=== PATIENT | male | born 1955 | race African-American/Black ===

== ENCOUNTER 2017-06-07 19:53 | Emergency (ER) | payer MEDICARE ==
[~2017-06-07] VITALS: Ht 172.7 cm; Wt 133.8 kg
[2017-06-07] MEDS ORDERED: Ketorolac 30mg Inj IV ONE (20:45)
[2017-06-07] MEDS ORDERED: Morphine Sulfate 4mg/ml Inj IVP ONE (20:45)
[2017-06-07 21:25] LABS: BASOPHILS % (AUTO) 0.7 % (0.0-2.0); EOSINOPHILS % (AUTO) 0.4 % (0.0-3.0); MEAN CORPUSCULAR HEMOGLOBIN 25.9 PG (27.0-31.0); MEAN CORPUSCULAR HGB CONC 32.2 G/DL (32.0-36.0); MEAN CORPUSCULAR VOLUME 81 FL (80-99); MONOCYTES % (AUTO) 8.3 % (1.0-10.0); NEUTROPHILS % (AUTO) 76.6 % (45.0-75.0); PLATELET COUNT 255 K/UL (150-450); RED BLOOD COUNT 5.29 M/UL (4.70-6.10); RED CELL DISTRIBUTION WIDTH 13.8 % (11.6-14.8); WHITE BLOOD COUNT 12.7 K/UL (4.8-10.8)
[2017-06-07 21:47] LABS: APPEARANCE,URINE CLEAR; KETONES,URINE NEGATIVE (NEGATIVE); LEUKOCYTE ESTERASE ,URINE NEGATIVE (NEGATIVE); NITRITE,URINE NEGATIVE (NEGATIVE); PH,URINE 5 (4.5-8.0); PROTEIN,URINE NEGATIVE (NEGATIVE); UROBILINOGEN,URINE NORMAL MG/DL (0.0-1.0)
[2017-06-07] MEDS ORDERED: TAMSULOSIN HCL0.4 MG ORAL (21:48)
[2017-06-07] MEDS ORDERED: NORCO 5-325 TA1 EACH ORAL (21:48)
[2017-06-07] MEDS ORDERED: IBUPROFEN600 MG ORAL (21:48)
[2017-06-07 21:51] LABS: ALBUMIN/GLOBULIN RATIO 1.2 (1.0-2.7); CREATININE 1.6 mg/dL (0.7-1.2); GLOMERULAR FILTRATION RATE 53.2 mL/min (>60); POTASSIUM 3.8 mEQ/L (3.4-4.9); TOTAL PROTEIN 8.6 g/dL (6.6-8.7)
[2017-06-07 21:54] LABS: PROTHROMBIN TIME 10.6 SEC (9.30-11.50)
[2017-06-07 21:55] LABS: BACTERIA,URINE FEW /HPF; WBC,URINE 0-2 /HPF (0 - 0)
[2017-06-07] MEDS ORDERED: BACTRIM DS TAB1 EAC1 ORAL (21:55)
[2017-06-07 22:17] VITALS: BP 133/77
[2017-06-07 22:19] VITALS: BP 133/77
--- NOTE | 2017-06-07 23:35 | Emergency Room Report ---
History of Present Illness General Chief Complaint: Abdominal Pain Source: Patient Present Illness HPI Patient 61-year-old male who presented after increased left-sided flank pain. Patient had onset of symptoms since this morning. Patient not been vomiting. He denied any fever. Patient prior history of renal stones. The patient denied any hematuria. He stated this felt similar to his previous kidney stones. Pain was severe nature. He did not have any vomiting he reported having normal bowel movements. Allergies: Coded Allergies: PENICILLINS (Verified Allergy, Intermediate, 06/07/17) Patient History Past Medical History: see triage record Reviewed Nursing Documentation: PMH: Agreed, PSxH: Agreed Nursing Documentation-PMH Hx Hypertension: Yes Hx Diabetes: Yes Review of Systems All Other Systems: negative except mentioned in HPI Physical Exam Vital Signs Date Time Temp Pulse Resp B/P Pulse Ox O2 Delivery O2 Flow Rate FiO2 06/07/17 20:16 98.2 86 16 153/80 98 Room Air Sp02 EP Interpretation: reviewed, normal General Appearance: normal inspection, well appearing, no apparent distress, alert, GCS 15 Head: atraumatic ENT: normal ENT inspection, hearing grossly normal, normal voice Neck: normal inspection, full range of motion, supple, no bony tend Respiratory: normal inspection, lungs clear, normal breath sounds, no respiratory distress, no retraction, no wheezing Cardiovascular #1: regular rate, rhythm, no edema Gastrointestinal: normal inspection, normal bowel sounds, non tender, soft, no guarding, no hernia Genitourinary: CVA tenderness (L) Musculoskeletal: normal inspection, back normal, normal range of motion Neurologic: normal inspection, alert, oriented x3, responsive, associate java developer III-XII nml as tested, speech normal Psychiatric: normal inspection, judgement/insight normal, mood/affect normal Skin: normal inspection, normal color, no rash Medical Decision Making Diagnostic Impression: Primary Impression: Stone, kidney Additional Impressions: Renal insufficiency Ureteral stone ER Course Patient presented for flank pain. Differential diagnosis included was not limited to pneumonia, renal stone, rib fracture, pulmonary embolism, ulcer, enteritis, pyelonephritis among others. Because of complexity of patient's case laboratory testing and imaging studies were ordered.The patient given IV pain medications. He was noted to have the mild elevated white blood count. The patient was also noted to have a mildly elevated creatinine. The patient prior history of diabetes. A CT imaging of the abdomen pelvis read by radiology showed 5 mm ureteral stone as well as a smaller intrarenal stone on the left side. Patient is advised of CT findings. He was given prescription for oral antibiotics as well as pain medication and Flomax. Patient is advised to return if he began having persistent vomiting high fever or other concerns Labs Test 06/07/17 21:15 White Blood Count 12.7 K/UL (4.8-10.8) Red Blood Count 5.29 M/UL (4.70-6.10) Hemoglobin 13.7 G/DL (14.2-18.0) Hematocrit 42.6 % (42.0-52.0) Mean Corpuscular Volume 81 FL (80-99) Mean Corpuscular Hemoglobin 25.9 PG (27.0-31.0) Mean Corpuscular Hemoglobin Concent 32.2 G/DL (32.0-36.0) Red Cell Distribution Width 13.8 % (11.6-14.8) Platelet Count 255 K/UL (150-450) Mean Platelet Volume 8.0 FL (6.5-10.1) Neutrophils (%) (Auto) 76.6 % (45.0-75.0) Lymphocytes (%) (Auto) 14.0 % (20.0-45.0) Monocytes (%) (Auto) 8.3 % (1.0-10.0) Eosinophils (%) (Auto) 0.4 % (0.0-3.0) Basophils (%) (Auto) 0.7 % (0.0-2.0) Prothrombin Time 10.6 SEC (9.30-11.50) Prothromb Time International Ratio 1.0 (0.9-1.1) Activated Partial Thromboplast Time 25 SEC (23-33) Urine Color Pale yellow Urine Appearance Clear Urine pH 5 (4.5-8.0) Urine Specific [place] 1.015 (1.005-1.035) Urine Protein Negative (NEGATIVE) Urine Glucose (UA) Negative (NEGATIVE) Urine Ketones Negative (NEGATIVE) Urine Occult Blood 4+ (NEGATIVE) Urine Nitrite Negative (NEGATIVE) Urine Bilirubin Negative (NEGATIVE) Urine Urobilinogen Normal MG/DL (0.0-1.0) Urine Leukocyte Esterase Negative (NEGATIVE) Urine RBC 2-4 /HPF (0 - 0) Urine WBC 0-2 /HPF (0 - 0) Urine Squamous Epithelial Cells None /LPF (NONE/OCC) Urine Bacteria Few /HPF (NONE) Sodium Level 136 mEQ/L (135-145) Potassium Level 3.8 mEQ/L (3.4-4.9) Chloride Level 97 mEQ/L (98-107) Carbon Dioxide Level 23 mEQ/L (20-30) Anion Gap 16 (5-15) Blood Urea Nitrogen 24 mg/dL (7-23) Creatinine 1.6 mg/dL (0.7-1.2) Estimat Glomerular Filtration Rate 53.2 mL/min (>60) Glucose Level 175 mg/dL (74-106) Calcium Level 10.0 mg/dL (8.6-10.2) Total Bilirubin 0.2 mg/dL (0.0-1.2) Aspartate Amino Transf (AST/SGOT) 15 U/L (5-40) Alanine Aminotransferase (ALT/SGPT) 13 U/L (3-41) Alkaline Phosphatase 61 U/L (40-129) Total Protein 8.6 g/dL (6.6-8.7) Albumin 4.7 g/dL (3.5-5.2) Globulin 3.9 g/dL Albumin/Globulin Ratio 1.2 (1.0-2.7) Lipase 19 U/L (< 60) Last Vital Signs Date Time Temp Pulse Resp B/P Pulse Ox O2 Delivery O2 Flow Rate FiO2 06/07/17 22:19 98.2 89 16 133/77 98 Room Air Status: improved Disposition: HOME, SELF-CARE Condition: Stable Scripts Trimethoprim/Sulfamethoxazole 160/800* (BACTRIM DS TABLET*) 1 Each Tablet 1 TAB ORAL Q12H, #14 TAB 0 Refills Prov: Wyatt Du 06/07/17 Ibuprofen* (MOTRIN*) 600 Mg Tablet 600 MG ORAL Q8H Y for For Pain, #30 TAB 0 Refills Prov: Wyatt Du 06/07/17 Hydrocodone Bit/Acetaminophen 5-325* (NORCO 5-325*) 1 Each Tablet 1 TAB ORAL Q6H Y for For Pain, #20 TAB 0 Refills Prov: Wyatt Du 06/07/17 Tamsulosin Hcl (TAMSULOSIN HCL*) 0.4 Mg Cap.er.24h 0.4 MG ORAL BEDTIME, #10 CAP Prov: Wyatt Du 06/07/17 Patient Instructions: Kidney Stones Wyatt Du Jun 07, 2017 23:35
--- NOTE | 2017-06-08 10:04 | Diagnostic Imaging Report ---
Indication: PAIN Technique: Spiral acquisitions obtained through the abdomen and pelvis. No oral or IV contrast utilized, per urinary stone protocol. Multiplanar reconstructions were generated. Total dose length product follow 6 mGycm. CTDIvol(s) 19 mGy. Dose reduction achieved using automated exposure control Comparison: None Findings: There is a 4 mm calculus within the proximal left ureter, just beyond the ureteropelvic junction. There is mild resultant left hydronephrosis. There is left perinephric fat stranding. There is also a 3 mm calculus in the lower pole of the of renal collecting system. No right renal or ureteral calculi demonstrated. No right hydronephrosis or hydroureter. Lack of IV contrast limits assessment of the renal parenchyma. No gross renal parenchymal mass or cyst. The prostate is enlarged, indents the bladder floor slightly. It contains calcifications. The bladder itself is unremarkable. Lack of IV contrast limits assessment of the other solid organs. The liver demonstrates mild generalized hypoattenuation, consistent fatty change. The gallbladder is surgically absent. The bile ducts are unremarkable. The pancreas, spleen, right adrenal are unremarkable. The left adrenal demonstrates diffuse mild generalized enlargement without discrete focal mass. No pelvic mass or adenopathy. No retroperitoneal or mesenteric mass or adenopathy. The appendix is normal. There is colonic diverticulosis. No evidence of diverticulitis. No small bowel distention. No free or loculated intraperitoneal air or fluid. The included lung bases are clear. The bones demonstrate degenerative spondylosis changes. Impression: Positive for 4 mm proximal left ureteral calculus, results in hydronephrosis and perinephric fat stranding Prostatomegaly Mild fatty liver Evidence of prior cholecystectomy Nonspecific generalized enlargement of the left adrenal, may reflect mild hypertrophy. Colonic diverticulosis. No evidence of diverticulitis Incidental findings as noted, including degenerative spondylosis This agrees with the preliminary interpretation provided overnight by Dr. Naranjo The CT scanner at [facility] is accredited by the [employer] and the scans are performed using protocols designed to limit radiation exposure to as low as reasonably achievable to attain images of sufficient resolution adequate for diagnostic evaluation.
== END 2017-06-07 21:49 | disposition home or self-care (01) ==
LOC: EMR 20:26
DX: R10.9 Unspecified abdominal pain (principal); Z88.0 Allergy status to penicillin; N28.9 Disorder of kidney and ureter, unspecified; N13.2 Hydronephrosis with renal and ureteral calculous obstruction; K76.0 Fatty (change of) liver, not elsewhere classified; Z90.49 Acquired absence of other specified parts of digestive tract; K57.30 Diverticulosis of large intestine without perforation or abscess without bleeding
CPT/HCPCS: 36415; 74176; 80053; 81003; 83690; 85025; 85610; 85730; 96374; 96375; 99284; J1885; J2270

== ENCOUNTER 2017-07-11 08:52 | Emergency (ER) | payer MEDICARE ==
[~2017-07-11] VITALS: Ht 180.3 cm; Wt 99.8 kg
[~2017-07-11 08:52] MED LIST: BACTRIM DS TAB1 EAC1 ORAL; IBUPROFEN600 MG ORAL; NORCO 5-325 TA1 EACH ORAL; TAMSULOSIN HCL0.4 MG ORAL
[2017-07-11 08:56] VITALS: BP 168/92
[2017-07-11] MEDS ORDERED: METFORMIN HCL500 M1 ORAL (08:59)
[2017-07-11] MEDS ORDERED: Ketorolac 30mg Inj IM ONE (09:15)
[2017-07-11] MEDS ORDERED: NORCO 5-325 TA1 EACH ORAL (09:43)
[2017-07-11] MEDS ORDERED: CYCLOBENZAPRINE10 MG ORAL (09:43)
[2017-07-11 09:48] VITALS: BP 168/92
--- NOTE | 2017-07-11 10:47 | Emergency Room Report ---
History of Present Illness General Chief Complaint: Lower Back Pain or Injury Source: Patient, Medical Record Present Illness HPI 61-year-old male presents ED complaining of back pain. States pain started this morning after bending over to hand picker something. Patient notes pain in his lower back, throbbing, 8 out of 10, radiating down both legs. Denies any weakness in his legs. Denies any bowel or bladder incontinence. No other aggravating relieving factors. Denies any other associated symptoms Allergies: Coded Allergies: PENICILLINS (Verified Allergy, Intermediate, 06/07/17) Patient History Past Medical History: DM, HTN Past Surgical History: none Pertinent Family History: none Social History: Denies: smoking, alcohol use, drug use Immunizations: UTD Reviewed Nursing Documentation: PMH: Agreed, PSxH: Agreed Nursing Documentation-PMH Past Medical History: No History, Except For Hx Hypertension: Yes Hx Diabetes: Yes Review of Systems All Other Systems: negative except mentioned in HPI Physical Exam Vital Signs Date Time Temp Pulse Resp B/P (MAP) Pulse Ox O2 Delivery O2 Flow Rate FiO2 07/11/17 08:56 97.9 85 19 168/92 98 Room Air Sp02 EP Interpretation: reviewed, normal General Appearance: no apparent distress, alert, GCS 15, non-toxic, obese Head: normocephalic Eyes: bilateral eye normal inspection, bilateral eye PERRL ENT: normal ENT inspection Neck: normal inspection Respiratory: chest non-tender, lungs clear, normal breath sounds, speaking full sentences Cardiovascular #1: regular rate, rhythm, no edema Gastrointestinal: normal bowel sounds, non tender, soft, non-distended, no guarding, no rebound Rectal: deferred Genitourinary: no CVA tenderness, no vertebral tenderness Musculoskeletal: tender - paraspinal lumbar tenderness Neurologic: alert, oriented x3, responsive, motor strength/tone normal, sensory intact, speech normal Psychiatric: normal inspection Skin: normal inspection Lymphatic: normal inspection Medical Decision Making Diagnostic Impression: Primary Impression: Low back pain Qualified Codes: M54.5 - Low back pain ER Course Hospital Course 61-year-old male presents ED complaining of lower back pain. No evidence of trauma Differential diagnoses include: pyelonephritis, kidney stone, muscle strain, Lspine fracture Clinical course Patient placed on stretcher. After initial history and physical I ordered toradol and zantac for pain. Upon reassessment patient states pain has improved. Upon review of EMR, patient does not have any visits to ED requesting pain medications. patient does not have a PMD. Patient will be given referrals for PMD as well Diagnosis - back pain Stable and discharged to home with prescription for [place], Flexeril. Followup with PMD. Return to ED if symptoms recur or worsen Last Vital Signs Date Time Temp Pulse Resp B/P (MAP) Pulse Ox O2 Delivery O2 Flow Rate FiO2 07/11/17 09:48 97.9 76 19 168/92 98 Room Air Status: improved Disposition: HOME, SELF-CARE Condition: Stable Scripts Cyclobenzaprine Hcl* (FLEXERIL*) 10 Mg Tablet 10 MG ORAL TID Y for Muscle Spasm, #20 TAB Prov: SAMMIE KWAN M.D. 07/11/17 Hydrocodone Bit/Acetaminophen 5-325* (NORCO 5-325*) 1 Each Tablet 1 TAB ORAL Q6H Y for For Pain, #10 TAB 0 Refills Prov: SAMMIE KWAN M.D. 07/11/17 Referrals: DANICA COTA M.D., Payam MD SHAKIBAI, SHAMIM Patient Instructions: Lumbosacral Strain SAMMIE KWAN M.D. Jul 11, 2017 10:47
== END 2017-07-11 09:48 | disposition home or self-care (01) ==
LOC: EMR 09:12
DX: M54.5 Low back pain (principal); Z88.0 Allergy status to penicillin; I10 Essential (primary) hypertension; E11.9 Type 2 diabetes mellitus without complications
CPT/HCPCS: 96372; 99284; J1885

== ENCOUNTER 2018-03-25 14:53 | Emergency (ER) | payer MEDICARE ==
[~2018-03-25] VITALS: Ht 180.3 cm; Wt 108.9 kg
[~2018-03-25 14:53] MED LIST changes: +CYCLOBENZAPRINE10 MG ORAL; +METFORMIN HCL500 M1 ORAL
[2018-03-25 15:07] VITALS: BP 144/80
[2018-03-25 15:53] LABS: EOSINOPHILS % (AUTO) 1.8 % (0.0-3.0); HEMATOCRIT 39.7 % (42.0-52.0); HEMOGLOBIN 12.4 G/DL (14.2-18.0); LYMPHOCYTES % (AUTO) 26.8 % (20.0-45.0); MEAN CORPUSCULAR VOLUME 79 FL (80-99); MONOCYTES % (AUTO) 8.3 % (1.0-10.0); NEUTROPHILS % (AUTO) 62.1 % (45.0-75.0); PLATELET COUNT 273 K/UL (150-450); RED BLOOD COUNT 5.05 M/UL (4.70-6.10); RED CELL DISTRIBUTION WIDTH 13.4 % (11.6-14.8); WHITE BLOOD COUNT 7.7 K/UL (4.8-10.8)
[2018-03-25 16:01] LABS: ANION GAP 9 mmol/L (5-15); BLOOD UREA NITROGEN 15 mg/dL (7-18); CARBON DIOXIDE 25 MMOL/L (21-32); CHLORIDE 102 MMOL/L (98-107); CREATININE 1.3 MG/DL (0.55-1.30); POTASSIUM 3.9 MMOL/L (3.5-5.1); SODIUM 136 MMOL/L (136-145)
[2018-03-25 16:06] LABS: ALANINE AMINOTRANSFERASE 24 U/L (12-78); ALBUMIN 3.8 G/DL (3.4-5.0); ALBUMIN/GLOBULIN RATIO 0.8 (1.0-2.7); ALKALINE PHOSPHATASE 56 U/L (46-116); ASPARTATE AMINO TRANSFERASE 8 U/L (15-37); BILIRUBIN,TOTAL 0.2 MG/DL (0.2-1.0)
[2018-03-25 16:09] LABS: APPEARANCE,URINE CLEAR; BILIRUBIN, URINE NEGATIVE (NEGATIVE); COLOR,URINE PALE YELLOW; GLUCOSE, URINE (UA) NEGATIVE (NEGATIVE); KETONES,URINE NEGATIVE (NEGATIVE); LEUKOCYTE ESTERASE ,URINE NEGATIVE (NEGATIVE); NITRITE,URINE NEGATIVE (NEGATIVE); PH,URINE 5 (4.5-8.0); PROTEIN,URINE 2+ (NEGATIVE); UROBILINOGEN,URINE NORMAL MG/DL (0.0-1.0)
--- NOTE | 2018-03-25 16:09 | Diagnostic Imaging Report ---
Indication: Pain Technique: Continuous helical CT scanning of the head was performed utilizing automated exposure control without intravenous contrast material. Axial and coronal reconstructions were obtained. Comparison: None CT dose: Total DLP 1449.06 mGycm; CTDI vol 70.38 mGy Findings: There is no acute intracranial hemorrhage, mass effect or cortical edema. The ventricles, cisterns and sulci are within normal limits for age. There is a punctate subcentimeter calcification in the right aspect of dell. There are some very mild basal ganglia calcifications. There is mild opacification of some inferior right-sided mastoid air cells. Left-sided mastoid air cells are clear. Paranasal sinuses are clear. Imaged orbits grossly unremarkable. IMPRESSION: No evidence of acute intracranial hemorrhage, mass effect or cortical edema. MRI may be obtained for more sensitive evaluation as clinically indicated. Trace right mastoid effusion/mastoiditis. The CT scanner at [facility] is accredited by the [employer] and the scans are performed using protocols designed to limit radiation exposure to as low as reasonably achievable to attain images of sufficient resolution adequate for diagnostic evaluation.
[2018-03-25] MEDS ORDERED: Ketorolac 30mg Inj IV ONE (17:00)
[2018-03-25] MEDS ORDERED: carBAMazepine 200mg tab ORAL ONE (17:00)
[2018-03-25] MEDS ORDERED: ACYCLOVIR800 MG ORAL (17:04)
[2018-03-25] MEDS ORDERED: CLEOCIN150 MG ORAL (17:04)
[2018-03-25] MEDS ORDERED: TEGRETOL200 MG PO (17:04)
[2018-03-25 17:13] VITALS: BP 138/79
--- NOTE | 2018-03-29 14:33 | Emergency Room Report ---
History of Present Illness General Chief Complaint: Pain Source: Patient Present Illness HPI Patient is a 62-year-old male who presents after increased left-sided facial pain. The patient was having onset of symptoms approximate 2 hours prior to arrival. He denies any weakness to his extremities. He denies any change in his balance. Patient reports having burning sensation to the left side of his face to the back of his head. The patient has prior history of diabetes.Patient denies any visual changes.He denies any neck stiffness. Allergies: Coded Allergies: PENICILLINS (Verified Allergy, Intermediate, 06/07/17) Patient History Past Medical History: see triage record Reviewed Nursing Documentation: PMH: Agreed; PSxH: Agreed Nursing Documentation-PMH Past Medical History: No History, Except For Hx Hypertension: Yes Hx Diabetes: Yes Review of Systems All Other Systems: negative except mentioned in HPI Physical Exam Vital Signs Date Time Temp Pulse Resp B/P (MAP) Pulse Ox O2 Delivery O2 Flow Rate FiO2 03/25/18 14:57 97.7 99 20 149/80 97 Room Air 97.7 Sp02 EP Interpretation: reviewed, normal General Appearance: normal inspection, well appearing, no apparent distress, alert, GCS 15, obese Head: atraumatic ENT: normal ENT inspection, hearing grossly normal, normal voice Neck: normal inspection, full range of motion, supple, no bony tend Respiratory: normal inspection, lungs clear, normal breath sounds, no respiratory distress, no retraction, no wheezing Cardiovascular #1: regular rate, rhythm, no edema Gastrointestinal: normal inspection, normal bowel sounds, non tender, soft, no guarding, no hernia Genitourinary: no CVA tenderness Musculoskeletal: normal inspection, back normal, normal range of motion Neurologic: normal inspection, alert, oriented x3, responsive, bus 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 The differential diagnosis included was not limited to CVA, shingles, trigeminal neuralgia, sinusitis, intracranial hemorrhage among others.Because of complexity of patient's case laboratory testing and imaging studies were ordered. CT of the head read by radiology showed evidence of pontine calcification. Carotid ultrasound showed no evidence of significant carotid disease. The patient is advised to follow up with primary care doctor in 1-2 days for neurology. Patient is advised to return if any worsening condition or if any changes in status that are concerning. This report is dictated with [email or web address] wrapping machine tender software which may occasionally lead to discrepancies related to use of this software. Labs Test 03/25/18 15:30 03/25/18 15:45 White Blood Count 7.7 K/UL (4.8-10.8) Red Blood Count 5.05 M/UL (4.70-6.10) Hemoglobin 12.4 G/DL (14.2-18.0) Hematocrit 39.7 % (42.0-52.0) Mean Corpuscular Volume 79 FL (80-99) Mean Corpuscular Hemoglobin 24.5 PG (27.0-31.0) Mean Corpuscular Hemoglobin Concent 31.1 G/DL (32.0-36.0) Red Cell Distribution Width 13.4 % (11.6-14.8) Platelet Count 273 K/UL (150-450) Mean Platelet Volume 7.5 FL (6.5-10.1) Neutrophils (%) (Auto) 62.1 % (45.0-75.0) Lymphocytes (%) (Auto) 26.8 % (20.0-45.0) Monocytes (%) (Auto) 8.3 % (1.0-10.0) Eosinophils (%) (Auto) 1.8 % (0.0-3.0) Basophils (%) (Auto) 1.0 % (0.0-2.0) Sodium Level 136 MMOL/L (136-145) Potassium Level 3.9 MMOL/L (3.5-5.1) Chloride Level 102 MMOL/L (98-107) Carbon Dioxide Level 25 MMOL/L (21-32) Anion Gap 9 mmol/L (5-15) Blood Urea Nitrogen 15 mg/dL (7-18) Creatinine 1.3 MG/DL (0.55-1.30) Estimat Glomerular Filtration Rate > 60 mL/min (>60) Glucose Level 180 MG/DL (74-106) Calcium Level 9.0 MG/DL (8.5-10.1) Total Bilirubin 0.2 MG/DL (0.2-1.0) Aspartate Amino Transf (AST/SGOT) 8 U/L (15-37) Alanine Aminotransferase (ALT/SGPT) 24 U/L (12-78) Alkaline Phosphatase 56 U/L (46-116) Total Protein 8.6 G/DL (6.4-8.2) Albumin 3.8 G/DL (3.4-5.0) Globulin 4.8 g/dL Albumin/Globulin Ratio 0.8 (1.0-2.7) Urine Color Pale yellow Urine Appearance Clear Urine pH 5 (4.5-8.0) Urine Specific [place] 1.020 (1.005-1.035) Urine Protein 2+ (NEGATIVE) Urine Glucose (UA) Negative (NEGATIVE) Urine Ketones Negative (NEGATIVE) Urine Occult Blood 1+ (NEGATIVE) Urine Nitrite Negative (NEGATIVE) Urine Bilirubin Negative (NEGATIVE) Urine Urobilinogen Normal MG/DL (0.0-1.0) Urine Leukocyte Esterase Negative (NEGATIVE) Urine RBC 0-2 /HPF (0 - 0) Urine WBC 0-2 /HPF (0 - 0) Urine Squamous Epithelial Cells None /LPF (NONE/OCC) Urine Bacteria Few /HPF (NONE) Last Vital Signs Date Time Temp Pulse Resp B/P (MAP) Pulse Ox O2 Delivery O2 Flow Rate FiO2 03/25/18 17:13 97.7 85 18 138/79 100 Room Air 207.9 Status: improved Disposition: HOME, SELF-CARE Condition: Stable Scripts Clindamycin HCl (Clindamycin HCl) 300 Mg Capsule 150 MG ORAL Q6H, #28 CAP Prov: Wyatt Du MD 03/25/18 Acyclovir* (ZOVIRAX*) 800 Mg Tablet 800 MG ORAL FIVE TIMES A DAY, #35 TAB Prov: Wyatt Du MD 03/25/18 Carbamazepine (TEGRETOL*) 200 Mg Tablet 200 MG PO TID, #30 TAB Prov: Wyatt Du MD 03/25/18 Patient Instructions: Trigeminal Neuralgia Additional Instructions: Follow up with primary care physician for neurology referral. Return if worse. Wyatt Du MD March 29, 2018 14:33
== END 2018-03-25 17:16 | disposition home or self-care (01) ==
LOC: EMR 16:41
DX: G50.0 Trigeminal neuralgia (principal); I10 Essential (primary) hypertension; E11.9 Type 2 diabetes mellitus without complications; Z88.0 Allergy status to penicillin
CPT/HCPCS: 36415; 70450; 80053; 81001; 85025; 93880; 96374; 96375; 99284; J1885

== ENCOUNTER 2019-01-03 09:24 | Emergency (ER) | payer MEDICARE ==
[~2019-01-03] VITALS: Ht 175.3 cm; Wt 108.9 kg
[~2019-01-03 09:24] MED LIST changes: +ACYCLOVIR800 MG ORAL; +CLEOCIN150 MG ORAL; +LOSARTAN-HCTZ1 EAC2 ORAL; +TEGRETOL200 MG PO
[2019-01-03] MEDS ORDERED: METOPROLOL SUCC25 MG ORAL (09:33)
--- NOTE | 2019-01-03 09:33 | NUR ---
ED Nurse Note: Provided mask.
--- NOTE | 2019-01-03 09:35 | NUR ---
ED Nurse Note: patient walked into ED from home c/o coughing and congestion for 2 days. patient reports having fever last night. ambulatory, a/o x4
--- NOTE | 2019-01-03 09:44 | Emergency Room Report ---
History of Present Illness General Chief Complaint: Flu Like Symptoms Source: Patient Present Illness HPI 63yo M w/ h/o HTN, DM, Afib on eliquis p/w cough with yellowish sputum and congestion, as well as myalgias and subjective fevers for the past 2 days. He denies hemoptysis, leg pain or swelling, syncope, vomiting, diarrhea, focal pain complaints, but does reports generalized body aches. He's not tried any meds for his symptoms. Allergies: Coded Allergies: PENICILLINS (Verified Allergy, Intermediate, 06/07/17) PEANUT (Unverified Allergy, Unknown, 01/03/19) Uncoded Allergies: PEANUTS (Allergy, Unknown, 01/03/19) Patient History Past Medical History: see triage record Reviewed Nursing Documentation: PMH: Agreed; PSxH: Agreed Nursing Documentation-PMH Past Medical History: No History, Except For Hx Hypertension: Yes Hx Diabetes: Yes Review of Systems All Other Systems: negative except mentioned in HPI Physical Exam Vital Signs Date Time Temp Pulse Resp B/P (MAP) Pulse Ox O2 Delivery O2 Flow Rate FiO2 01/03/19 09:30 98.4 91 16 153/90 99 Sp02 EP Interpretation: reviewed, normal General Appearance: no apparent distress, alert, non-toxic Head: normocephalic Eyes: bilateral eye normal inspection, bilateral eye PERRL, bilateral eye EOMI ENT: normal ENT inspection, hearing grossly normal, normal pharynx, no angioedema, normal voice, moist mucus membranes Neck: normal inspection, full range of motion, supple, supple/symm/no masses Respiratory: chest non-tender, lungs clear, normal breath sounds, no respiratory distress, no retraction, no accessory muscle use, speaking full sentences, chest symmetrical, palpation of chest normal Cardiovascular #1: normal peripheral pulses, regular rate, rhythm, no edema, no gallop, no JVD, no murmur, no rub Cardiovascular #2: 2+ radial (R), 2+ radial (L) Gastrointestinal: normal inspection, non tender, soft, no mass, no guarding, no rebound Rectal: deferred Genitourinary: normal inspection, no CVA tenderness Musculoskeletal: back normal, gait/station normal, normal range of motion, non- tender, no calf tenderness, Kilo's Sign negative Neurologic: alert, responsive, 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 Patient had tylenol given here. Labs show hyperglycemia, no dka, mild dehydration, wants to go home. EKG Diagnostic Results EKG Time: 09:40 EP Interpretation: no stemi Rate: normal Rhythm: NSR ST Segments: no acute changes Rhythm Strip Diag. Results Rhythm Strip Time: 09:44 EP Interpretation: yes Rate: 97 Rhythm: NSR, no PVC's, no ectopy Chest X-Ray Diagnostic Results Chest X-Ray Diagnostic Results : Chest X-Ray Ordered: Yes # of Views/Limited/Complete: 1 View Indication: Other - cough EP Interpretation: Yes Interpretation: no consolidation, no effusion, no pneumothorax, no acute cardiopulmonary disease Impression: No acute disease Electronically Signed by: Stephany Sinclair MD Last Vital Signs Date Time Temp Pulse Resp B/P (MAP) Pulse Ox O2 Delivery O2 Flow Rate FiO2 01/03/19 09:30 98.4 91 16 153/90 99 Disposition: HOME, SELF-CARE Condition: Stable STEPHANY SINCLAIR M.D Jan 03, 2019 09:44
[2019-01-03] MEDS ORDERED: Acetaminophen 500mg (ES) tab ORAL ONE (09:45)
[2019-01-03 10:12] LABS: BASOPHILS % (AUTO) 0.9 % (0.0-2.0); EOSINOPHILS % (AUTO) 1.8 % (0.0-3.0); HEMATOCRIT 48.9 % (42.0-52.0); HEMOGLOBIN 15.2 G/DL (14.2-18.0); MEAN CORPUSCULAR VOLUME 76 FL (80-99); MONOCYTES % (AUTO) 11.5 % (1.0-10.0); NEUTROPHILS % (AUTO) 75.9 % (45.0-75.0); PLATELET COUNT 287 K/UL (150-450); RED BLOOD COUNT 6.46 M/UL (4.70-6.10); RED CELL DISTRIBUTION WIDTH 14.4 % (11.6-14.8); WHITE BLOOD COUNT 8.6 K/UL (4.8-10.8)
[2019-01-03 10:30] LABS: ANION GAP 9 mmol/L (5-15); BLOOD UREA NITROGEN 23 mg/dL (7-18); CALCIUM 9.3 MG/DL (8.5-10.1); CARBON DIOXIDE 26 MMOL/L (21-32); CHLORIDE 97 MMOL/L (98-107); CREATININE 1.5 MG/DL (0.55-1.30); SODIUM 132 MMOL/L (136-145)
[2019-01-03 10:42] LABS: ALANINE AMINOTRANSFERASE 14 U/L (12-78); ALBUMIN 3.8 G/DL (3.4-5.0); ALBUMIN/GLOBULIN RATIO 0.8 (1.0-2.7); ALKALINE PHOSPHATASE 53 U/L (46-116); ASPARTATE AMINO TRANSFERASE 13 U/L (15-37); BILIRUBIN,TOTAL 0.4 MG/DL (0.2-1.0)
--- NOTE | 2019-01-03 11:00 | NUR ---
ED Nurse Note: urine sent down to lab
[2019-01-03 11:02] LABS: APPEARANCE,URINE CLEAR; BILIRUBIN, URINE NEGATIVE (NEGATIVE); COLOR,URINE PALE YELLOW; GLUCOSE, URINE (UA) 4+ (NEGATIVE); KETONES,URINE 3+ (NEGATIVE); LEUKOCYTE ESTERASE ,URINE NEGATIVE (NEGATIVE); NITRITE,URINE NEGATIVE (NEGATIVE); PH,URINE 5 (4.5-8.0); PROTEIN,URINE 2+ (NEGATIVE); UROBILINOGEN,URINE NORMAL MG/DL (0.0-1.0)
[2019-01-03] MEDS ORDERED: TAMIFLU75 MG ORAL (11:33)
--- NOTE | 2019-01-03 11:39 | Diagnostic Imaging Report ---
Indication: Dyspnea Comparison: None A single view chest radiograph was obtained. Findings: Cardiomediastinal appearance is within normal limits for age. The lungs are clear. Pulmonary vascularity is appropriate. The diaphragmatic contour is smooth and costophrenic angles are sharp. No pleural effusions are identified. The bones are unremarkable. Impression: No acute findings
[2019-01-03] MEDS ORDERED: TESSALON PERLE100 M2 ORAL (11:56)
[2019-01-03] MEDS ORDERED: ROBITUSSIN NIG237 ML PO (11:56)
--- NOTE | 2019-01-03 12:25 | NUR ---
ER DISCHARGE NOTE: Patient is cleared to be discharged per ERMD, pt is aox4, on room air, with stable vital signs. pt was given dc and prescription instructions, pt was able to verbalize understanding, pt id band and iv site removed without complications. pt is able to ambulate with steady gait. pt took all belongings.
--- NOTE | 2019-01-03 12:35 | NUR ---
Note lynn in EDM - 01/03/19 at 1317 by ELOO ED Nurse Note: patient walked into ED from home c/o coughing and congestion for 2 days. patient reports having fever last night. ambulatory, a/o x4
[2019-01-03 13:12] VITALS: BP 151/85
== END 2019-01-03 12:25 | disposition home or self-care (01) ==
LOC: EMR 09:45
DX: J11.1 Influenza due to unidentified influenza virus with other respiratory manifestations (principal); I10 Essential (primary) hypertension; E11.9 Type 2 diabetes mellitus without complications; I48.91 Unspecified atrial fibrillation; Z88.0 Allergy status to penicillin; Z91.010 Allergy to peanuts
CPT/HCPCS: 36415; 71045; 80053; 81003; 83880; 84484; 85025; 86710; 93005; 99284